=== PATIENT | female | born 1950 | race Caucasian/White ===

== ENCOUNTER 2020-11-11 10:40 | Day surgery (SDC) | payer MEDICARE, OTHER ==
[~2020-11-11] VITALS: Ht 162.6 cm; Wt 82.0 kg
[~2020-11-11 10:40] MED LIST: IBUPROFEN IB200 MG PO; ICAPS AREDS2 S1 EACH PO; VITAMIN D325 MC3 PO
[2020-11-11] MEDS ORDERED: GABA100 (10:52)
== END 2020-11-11 13:12 | disposition home or self-care (01) ==
LOC: ORSCSDS 10:40
PROVIDERS: Internal Medicine Gastroenterology
PROC: 0DBK8ZX Excision of Ascending Colon, Via Natural or Artificial Opening Endoscopic, Diagnostic (ICD-10-PCS; principal; 2020-11-11 12:00)
DX: Z12.11 Encounter for screening for malignant neoplasm of colon (principal); Z86.010 Personal history of colon polyps; D12.2 Benign neoplasm of ascending colon; K57.30 Diverticulosis of large intestine without perforation or abscess without bleeding; I10 Essential (primary) hypertension; J45.909 Unspecified asthma, uncomplicated; G40.909 Epilepsy, unspecified, not intractable, without status epilepticus; M79.7 Fibromyalgia
CPT/HCPCS: 88305; J2704; J7120